=== PATIENT | female | born 1975 | race Caucasian/White ===

== ENCOUNTER 2024-09-15 18:18 | Emergency (ER) | payer BC ==
[~2024-09-15] VITALS: Ht 162.5 cm; Wt 136.1 kg
[2024-09-15] MEDS ORDERED: DILTIAZEM ER240 M1 PO (18:44)
[2024-09-15] MEDS ORDERED: METOPROLOL SUCC50 M1 PO (18:45)
[2024-09-15] MEDS ORDERED: LOSARTAN POTAS100 M1 PO (18:46)
[2024-09-15] MEDS ORDERED: FLUOXETINE HCL40 MG PO (18:46)
[2024-09-15] MEDS ORDERED: ALBUTEROL2.5 MG/0.5 INH (18:47)
[2024-09-15] MEDS ORDERED: Meclizine25 MG PO (18:47)
[2024-09-15] MEDS ORDERED: VALACYCLOVIR500 M1 PO (18:48)
[2024-09-15] MEDS ORDERED: BREO ELLIPTA 11 EACH INH (18:48)
[2024-09-15] MEDS ORDERED: APRISO0.375 GM PO (18:49)
[2024-09-15] MEDS ORDERED: PREDNISONE20 M1 PO (21:57)
[2024-09-15] MEDS ORDERED: ZITHROMAX250 MG PO (21:57)
[2024-09-15] MEDS ORDERED: methylPREDNISolone sod succ 125 MG VIAL IM ONE (22:00)
== END 2024-09-15 22:14 | disposition home or self-care (01) ==
LOC: ED 18:18
DX: B34.9 Viral infection, unspecified (principal); Z20.822 Contact with and (suspected) exposure to COVID-19; J44.9 Chronic obstructive pulmonary disease, unspecified; I10 Essential (primary) hypertension; F41.9 Anxiety disorder, unspecified; F32.A Depression, unspecified; E03.9 Hypothyroidism, unspecified